=== PATIENT | female | born 1995 | race Caucasian/White ===

== ENCOUNTER 2021-06-29 19:23 | Emergency (ER) | payer OTHER ==
[~2021-06-29] VITALS: Ht 162.6 cm; Wt 79.4 kg
[~2021-06-29 19:23] MED LIST: ALBU90OI6 INH; ALBU90OI61 INH; ANTOXYBENA BOTHEARS; Amoxicillin500 MG PO; CEPH500 PO; IBUP600 PO; IBUP800; IBUP800 PO; OXYACE5T; OXYACE5T PO; PARO20 PO
== END 2021-06-29 20:14 | disposition home or self-care (01) ==
LOC: ER 19:23
DX: S90.32XA Contusion of left foot, initial encounter (principal); F17.210 Nicotine dependence, cigarettes, uncomplicated; W22.8XXA Striking against or struck by other objects, initial encounter; Y92.000 Kitchen of unspecified non-institutional (private) residence as the place of occurrence of the external cause
CPT/HCPCS: 73630; 99283-25